=== PATIENT | female | born 1990 | race Caucasian/White ===

== ENCOUNTER 2021-11-12 18:57 | Emergency (ER) | payer OTHER ==
[2021-11-12 19:30] VITALS: BP 102/64; PULSE 78; TEMP 98; BMI 27.7
[2021-11-12] MEDS ORDERED: KETOROLAC TROMETHAMINE 30 MG/1 ML VIAL IM ONE (20:06)
== END 2021-11-12 20:35 | disposition home or self-care (01) ==
LOC: JERFT 18:57
PROC: 3E023GC Introduction of Other Therapeutic Substance into Muscle, Percutaneous Approach (ICD-10-PCS; principal; 2021-11-12)
DX: M79.632 Pain in left forearm (principal)
CPT/HCPCS: 73090-TC-LT-FY; 96372; 99284-25

== ENCOUNTER 2022-03-17 08:55 | Emergency (ER) | payer OTHER ==
[2022-03-17 09:11] VITALS: BP 100/60; PULSE 98; RESP 18; TEMP 98.1; BMI 27.4
[2022-03-17] MEDS ORDERED: ACETAMINOPHEN 325 MG TABLET (FP) PO ONE (09:59)
[2022-03-17] MEDS ORDERED: METOCLOPRAMIDE HCL 10 MG TABLET (FP) PO ONE ×2 (09:59→11:24)
[2022-03-17] MEDS ORDERED: ACETAMINOPHEN 325 MG TABLET (FP) ONE (11:24)
== END 2022-03-17 14:43 | disposition home or self-care (01) ==
LOC: JERFT 08:55
DX: M77.12 Lateral epicondylitis, left elbow (principal); R51.9 Headache, unspecified
CPT/HCPCS: 70450-TC; 73090-TC-LT-FY; 99284-25

== ENCOUNTER 2023-09-21 13:22 | Emergency (ER) | payer OTHER ==
[2023-09-21 13:42] VITALS: BP 106/68; PULSE 70; RESP 18; TEMP 97.8; BMI 29.2
[2023-09-21] MEDS ORDERED: METOCLOPRAMIDE HCL 10 MG TABLET (FP) PO ONE (15:23)
[2023-09-21] MEDS ORDERED: IBUPROFEN 400 MG TABLET (FP) PO ONE (15:24)
[2023-09-21] MEDS: METOCLOPRAMIDE HCL 10 MG TABLET (FP) PO ONE (15:25)
[2023-09-21] MEDS: IBUPROFEN 400 MG TABLET (FP) PO ONE (15:25)
== END 2023-09-21 15:54 | disposition home or self-care (01) ==
LOC: JERFT 13:22
DX: G44.229 Chronic tension-type headache, not intractable (principal)
CPT/HCPCS: 93005; 93010; 99283-25

== ENCOUNTER 2023-11-06 22:31 | Emergency (ER) | payer OTHER ==
[2023-11-06 22:35] VITALS: BP 97/62; PULSE 84; RESP 18; TEMP 98.8; BMI 29.4
== END 2023-11-07 00:19 | disposition home or self-care (01) ==
LOC: JER 22:31
DX: M25.532 Pain in left wrist (principal)
CPT/HCPCS: 99282-25